=== PATIENT | male | born 1970 | race Caucasian/White ===

== ENCOUNTER 2017-08-19 17:42 | Emergency (ER) | payer SELFPAY ==
[2017-08-19] MEDS ORDERED: EYE-STREAM OPHTH SOLUTION 120 ML BOTTLE. (18:03)
[2017-08-19] MEDS ORDERED: FLUORESCEIN OPHTH TEST STRIP. (18:03)
[2017-08-19] MEDS ORDERED: TETRACAINE 0.5% OPHTH SOLUTION 4ML BOTTLE. (18:06)
[2017-08-19] MEDS: EYE-STREAM OPHTH SOLUTION 120 ML BOTTLE. OU (18:14)
[2017-08-19] MEDS: TETRACAINE 0.5% OPHTH SOLUTION 4ML BOTTLE. OU (18:14)
[2017-08-19] MEDS: FLUORESCEIN 1MG EYE STRIP. OU (18:14)
[2017-08-19] MEDS: POLYMYXIN/TRIMETHOPRIM OPHTH SOLUTION 10ML BOTTLE. OD (18:32)
== END 2017-08-19 18:51 | disposition home or self-care (01) ==
LOC: ER 17:42
DX: S05.01XA Injury of conjunctiva and corneal abrasion without foreign body, right eye, initial encounter (principal); S00.86XA Insect bite (nonvenomous) of other part of head, initial encounter; S10.96XA Insect bite of unspecified part of neck, initial encounter; S80.862A Insect bite (nonvenomous), left lower leg, initial encounter; S80.861A Insect bite (nonvenomous), right lower leg, initial encounter; S40.862A Insect bite (nonvenomous) of left upper arm, initial encounter; S40.861A Insect bite (nonvenomous) of right upper arm, initial encounter; Z79.899 Other long term (current) drug therapy; Z88.5 Allergy status to narcotic agent; W57.XXXA Bitten or stung by nonvenomous insect and other nonvenomous arthropods, initial encounter; Y93.89 Activity, other specified; Y92.89 Other specified places as the place of occurrence of the external cause; Y99.8 Other external cause status
CPT/HCPCS: 99284